=== PATIENT | female | born 2000 | race Caucasian/White ===

== ENCOUNTER 2024-10-01 08:35 | Inpatient (IN) ==
[2024-10-01] MEDS ORDERED: OXYTOCIN 30 UNITS/NSS 30 UNITS/500 ML BAG IV PRN ×2 (09:30→18:06)
[2024-10-01] MEDS ORDERED: LIDOCAINE 1% LOCAL 20 ML VIAL INFIL PRN (09:30)
[2024-10-01 10:08] LABS: Hematocrit (blood only) 40.9 % (37.0-47.0); Hemoglobin 14.1 g/dl (12.0-16.0); Mean Corpuscular Hemoglobin 29.9 pg (25.0-34.0); Mean Corpuscular Volume 86.7 fL (80.0-100.0); Platelet Count 216 K/uL (130-400); RDW Standard Deviation 39.8 fL (36.4-46.3); Red Blood Count 4.72 M/uL (4.20-5.40); White Blood Count 15.41 K/ul (4.8-10.8)
[2024-10-01] MEDS: LACTATED RINGER'S 1,000 ML IV PRN (11:30)
[2024-10-01] MEDS ORDERED: NALOXONE HCL 0.4 MG/1 ML VIAL/CARP IV PRN (11:31)
[2024-10-01] MEDS ORDERED: NALOXONE HCL 1 MG in SODIUM CHLORIDE 0.9% 1,000 ML IV PRN (11:31)
[2024-10-01] MEDS ORDERED: LIDOCAINE 2% MPF LOCAL 5 ML VIAL EPI PRN (11:31)
[2024-10-01] MEDS ORDERED: diphenhydrAMINE 50 MG/ML VIAL IV PRN (11:31)
[2024-10-01] MEDS ORDERED: ROPIVACAINE 0.5% PF 5 MG/ML 20 ML VIAL EPI PRN (11:31)
[2024-10-01] MEDS ORDERED: NALBUPHINE HCL INJ 10 MG/ML AMP IV PRN (11:31)
[2024-10-01] MEDS ORDERED: BUPIVACAINE 0.25% PF 30 ML VIAL EPI PRN (11:31)
[2024-10-01] MEDS ORDERED: SODIUM CHLORIDE 0.9% PF INJ 10 ML VIAL EPI PRN (11:31)
--- NOTE | 2024-10-01 11:31 | Anesthesiology Consultation ---
Date of Service October 01, 2024 Assessment & Plan Chart Review Chart Review: Acceptable Risk for Labor Epidural Consults Requested none History Height/Weight Height: 5 ft 6 in Weight: 87.884 kg Allergies Allergy/AdvReac Type Severity Reaction Status Date / Time No Known Allergies Allergy Unknown Verified 09/26/24 10:08 Medications Home Medications Medication Instructions Recorded Confirmed Last Taken bisacodyl 5 mg tablet,delayed 5 mg PO DAILY 09/16/24 10/01/24 09/30/24 release (Dulcolax (bisacodyl)) ferrous sulfate 27 mg iron tablet 27 mg PO DAILY 10/01/24 10/01/24 09/30/24 vits no.130-ferrous fum 1 tab PO DAILY 10/01/24 10/01/24 09/30/24 27 mg iron-folic acid 800 mcg tablet ( Vitamin) Past Medical History Medical History (Updated 04/04/24 @ 11:04 by Annita Ortiz) No significant past medical history Past Family History Family History (System 04/04/24 @ 11:04 by Annita Ortiz) Other Family history non-contributory Heart disease Past Surgical History Surgical History (Updated 04/04/24 @ 11:04 by Annita Ortiz) S/P wisdom tooth extraction Social History Smoking Status: Never smoker Do You Dip or Chew Tobacco: No Hx Alcohol Use: No Hx Substance Use: No Physical Exam Vital Signs Last Vital Signs Temp 36.8 C 10/01/24 08:53 Pulse 84 10/01/24 09:18 Resp 20 10/01/24 08:53 BP 123/89 10/01/24 09:18 Testing Laboratory Results 10/01/24 09:49
[2024-10-01] MEDS: LIDOCAINE 2%/EPINEPHRINE 1:200,000 20 ML PF EPI STA (12:01)
[2024-10-01] MEDS: fentANYL 2 MCG/ML BUPIVacaine 0.125%-NSS 100ML BAG EPI PRN (12:02)
[2024-10-01] MEDS: SODIUM CHLORIDE 0.9% PF INJ 10 ML VIAL ONE (13:03)
[2024-10-01] MEDS: BUPIVACAINE 0.25% PF 30 ML VIAL ONE (13:03)
[2024-10-01] MEDS: fentANYL 2 MCG/ML BUPIVacaine 0.125%-NSS 100ML BAG ONE (13:04)
[2024-10-01] MEDS: BUPIVACAINE 0.25% PF 30 ML VIAL EPI STA (13:04)
[2024-10-01] MEDS: LIDOCAINE 2%/EPINEPHRINE 1:200,000 20 ML PF ONE (13:04)
[2024-10-01] MEDS: SODIUM CHLORIDE 0.9% PF INJ 10 ML VIAL EPI STA (13:05)
--- NOTE | 2024-10-01 13:18 | Anesthesia Procedure Note ---
Date of Service October 01, 2024 Anesthesia Epidural Re-Dose Vital Signs Temp Pulse Resp BP Pulse Ox 36.6 C 76 18 115/74 99 10/01/24 13:00 10/01/24 13:13 10/01/24 13:00 10/01/24 13:12 10/01/24 13:13 Notes Pain Intensity: 7 Dilatation (cm): 7.0 Effacement (%): 90 Called by nursing to evaluate epidural as the patient is having increased pain. The epidural was re-dosed with the following medications (all medications via epidural route) after negative aspiration of the epidural catheter for CSF/HEME. Lidocaine 2% After Epidural Re-Dose Mental Status: alert / awake / arousable and participated in evaluation Pain: improving with treatment Airway Patency, RR, SpO2: stable & adequate BP & HR: stable & adequate
[2024-10-01] MEDS: OXYTOCIN 30 UNITS/NSS 30 UNITS/500 ML BAG IV PRN (14:51)
--- NOTE | 2024-10-01 17:50 | Delivery Summary ---
Vaginal Delivery Summary Date of Service October 01, 2024 Vaginal Delivery Summary DIAGNOSES: 1. Robison intrauterine at 39w4d gestation. 2. SROM / Labor. 3. Group B Streptococcus Neg. 4. PPH with EBL 623cc 5. Bilateral sulcal lacerations and a deep 2nd degree perineal laceration, perineal hematoma 6. LOP position of the head at delivery PROCEDURE: Spontaneous vaginal delivery and repair of complex laceration. SURGEON: Adele Kovacs MD. ADMINISTRATION SPECIALIST: None. ESTIMATED BLOOD LOSS: 623 mL. COMPLICATIONS: None. PLACENTA: Spontaneous and intact with a 3-vessel cord. DISPOSITION: Stable to labor and delivery. DESCRIPTION: The patient pushed well and brought the head to in LOP position. The infant's head was allowed to deliver with contraction force and no further active pushing, with the perineum protected during this time. There was no nuchal cord. The right shoulder was anterior. The shoulders and body delivered without any difficulty, and the infant was placed on the maternal abdomen. It was vigorous and moving all extremities, and making respiratory efforts. The cord was doubly clamped by the MD and then cut by the FOB. The placenta delivered spontaneously and was noted to be intact and with a 3VC but with a marginal insertion. The cervix, vagina and perineum were examined and were found to have significant tissue edema, a complex laceration with bilateral deep sulcal lacerations and a midline deep 2nd degree laceration, and a left labial / perineal hematoma approximately the size of a golf ball visible immediately after delivery. Repair was accomplished by bringing portable suction unit and an fast food sales assistant / retractors to the bedside, and systematically addressing each sulcus and then the midline posterior vaginal / perineal laceration. The tissue globally but particularly on the left posterior vaginal wall / labium around 5 o'clock (where the occiput was positioned at delivery) was edematous and had poor retention of suture. Once reasonable hemostasis was achieved, therefore, a anderson and vaginal packing (one laparotomy sponge) was placed. The perineal hematoma was no larger than it had been (golf ball sized) and was softer after repair. A rectal examination ruled out injury to the re ctum and anal sphincter, which were both intact. I also placed 800mcg of cytotec rectally, because although the fundus has been firm and well below the umbilicus, any atony in the next hour or two may be harder to detect as lochia flow will be impeded by the vaginal packing. The fundus was firm and lochia was minimal at the time I placed the packing and left the room. [facility] Vaginal Delivery Charge Vaginal Delivery Codes: 37576 global code for the antepartum, delivery, and post-
--- NOTE | 2024-10-01 17:59 | Communication Note ---
Date of Service: October 01, 2024 pt s/p c/b PPH and vaginal lacs requiring repair and extensive packing. contacted by Dr. Kovacs with request to leave epidural in place as analgesia w hile packing in place overnight. Agreed and plan to leave epidural catheter in place with a new infusion order of 03/12/19 to act as EPCA. will continue to monitor on L&D. Rizwan RODRIGUEZ
[2024-10-01] MEDS ORDERED: DIPHTHER/TETAN/PERTUS Vaccine (Tdap, Adol/Adult) 0.5mL IM ONE (18:06)
[2024-10-01] MEDS ORDERED: HYDROCORTISONE ACETATE 25 MG SUPP PR PRN (18:06)
[2024-10-01] MEDS: LACTATED RINGER'S 1,000 ML IV SCH (19:00)
[2024-10-01] MEDS ORDERED: Nursing to Pharmacy Communication SCH (19:30)
[2024-10-01] MEDS: DOCUSATE SODIUM 100 MG CAP PO SCH (21:43)
[2024-10-02 07:04] LABS: Hematocrit (blood only) 28.6 % (37.0-47.0); Hemoglobin 9.8 g/dl (12.0-16.0); Mean Corpuscular Hemoglobin 29.7 pg (25.0-34.0); Mean Corpuscular Volume 86.7 fL (80.0-100.0); Platelet Count 169 K/uL (130-400); RDW Standard Deviation 39.8 fL (36.4-46.3); Red Blood Count 3.30 M/uL (4.20-5.40); White Blood Count 16.06 K/ul (4.8-10.8)
--- NOTE | 2024-10-02 07:44 | Obstetrical Progress Note ---
Date of Service October 02, 2024 Assessment & Plan (1) state: Complex vaginal lacerations hemostatic after repair and overnight packing. Significant labial edema and ecchymoses remain, but no hematoma at this point; all tissue soft, no organized collections. Continue ice packs, topical comfort medications, and TOV today. Hgb noted 9.8 this AM, vitals without tachycardia. Subjective Ambulation: limited ambulation Voiding: anderson catheter in place Passing Gas:: Yes Diet Tolerance:: regular diet Lochia:: Small Feeding Type:: breast feeding Physical Exam Constitutional WD/WN, vitals as above Eyes PERRL, conjunctivae normal, anicteric sclerae Neck normal visual inspection Respiratory normal respiratory effort and able to speak in complete sentences; no respiratory distress and no labored breathing Cardiovascular Rate/Rhythm: regular rate and regular rhythm Extremities: no edema Chest (Breasts) Chest: normal inspection of chest Gastrointestinal (Abdomen) Inspection/Auscultation: abdomen normal to inspection Soft, postgravid Psychiatric A+Ox3, euthymic affect Genitourinary OB Exam Abdomen: + fundal height Fundus: + firm and + relation to umbilicus (fundus just below umbilicus); not tender Vaginal packing removed, no active bleeding seen after removal. Anderson removed, 800cc clear urine seen in bag. Results & Data Vital Signs (Past 12 Hours) Vital Signs Temp Pulse Resp BP 10/02/24 07:08 88 96/61 L 10/02/24 06:56 71 98/54 L 10/02/24 05:57 78 99/59 L 10/02/24 04:57 92 H 116/55 L 10/02/24 03:57 75 108/62 10/02/24 02:57 73 108/72 10/02/24 02:49 97.9 F 18 10/02/24 01:56 79 100/67 10/02/24 00:56 77 104/68 10/01/24 23:56 84 10/01/24 23:56 120/76 10/01/24 23:52 99.0 F 18 10/01/24 22:57 75 10/01/24 22:57 110/68 10/01/24 21:56 78 109/68 10/01/24 20:40 96 H 109/80 10/01/24 20:25 93 H 114/73 10/01/24 20:10 18 10/01/24 20:10 97 H 118/66 10/01/24 19:55 89 118/78
--- NOTE | 2024-10-02 08:43 | Anesthesia Procedure Note ---
Date of Service October 02, 2024 Anesthesia Post Epidural Note Vital Signs Vital Signs: Temp Pulse Resp BP Pulse Ox 37 C 88 20 96/61 L 89 L 10/02/24 07:00 10/02/24 07:08 10/02/24 07:00 10/02/24 07:08 10/01/24 18:29 Pain Intensity Abdomen: Pain Intensity: 5 Notes Mental Status: alert / awake / arousable and participated in evaluation Nausea / Vomiting: adequately controlled Pain: adequately controlled Airway Patency, RR, SpO2: stable & adequate BP & HR: stable & adequate Hydration State: stable & adequate Neuraxial Anesthesia: was administered and sensory block is resolving Anesthetic Complications: no major complications apparent and Pt Satisfied with anesthetic care Epidural: Removed without complications and With tip intact Notes: epidural left in place after d/t PPH. labs WNL/VSS prior to removal of catheter.
[2024-10-02] MEDS: BENZOCAINE 20% SPRY 85 APPLN/85 GM CAN EXT PRN (09:21)
[2024-10-02] MEDS: PRENATAL VITAMIN 1 TAB PO SCH (09:21)
[2024-10-02] MEDS: IBUPROFEN 600 MG TAB PO PRN (11:50)
[2024-10-02] MEDS: ACETAMINOPHEN 325 MG TAB PO PRN (11:51)
[2024-10-02 21:00] VITALS: TEMP 97.7
[2024-10-02 22:54] VITALS: BP 97/60; PULSE 82; RESP 16; O2SAT 97
--- NOTE | 2024-10-03 05:31 | Obstetrical Progress Note ---
Date of Service October 03, 2024 Assessment & Plan (1) state: Plan: 24 y/o day 2 s/p complicated by PPH secondary to bilateral sulcal lacerations, deep 2nd degree lacerations, and perineal hematoma. Feels well today. Vital signs stable Continue post- care consult with nursing staff. Encourage ambulation and Pain controlled with ibuprofen Hgb stable Discharge home today, follow up with Dr. Kovacs in 6 weeks. Admission and Anticipated Discharge Date Admission Date: October 01, 2024 Anticipated date of discharge: 10/03/24 Supervising Physician Co-Signing Physician Notes Resident Physician Supervision Note: I interviewed and examined the patient. Discussed with Dr. Gómez and agree with findings and plan as documented in the note. Any exceptions or clarifications are listed here: Ready for d/c home. Voiding without difficulty or discomfort, edema and vaginal lacerations should continue to improve. Documented By: Adele Kovacs MD, FACOG Subjective 24 y/o G1PO day 2 s/p complicated by PPH secondary to bilateral sulcal laceration, deep 2nd degree perineal laceration, and a perineal hematoma. Ambulation: ambulating normally Voiding: no voiding problems Passing Gas:: Yes Diet Tolerance:: regular diet Lochia:: Small Feeding Type:: breast feeding Current Pain Level: 2/10 Resting comfortably this AM in NAD. Denies ROQUE, CP, SOB, N/V/D, LE pain/swelling. Review of Systems Review of Systems: All systems reviewed & are unremarkable except as noted in HPI & below Physical Exam Physical Exam: General: patient resting comfortably, NAD, non-toxic in appearance, AA&O x 4, answers questions appropriately. Skin: warm, dry, intact HEENT: NC/AT, anicteric sclera, conjunctiva without injection, moist mucus membranes. Heart: +S1/S2, regular, no m/r/g Lungs: equal air entry bilaterally, no rales/rhonchi/wheezes Abd: +BS, soft, NT/ND, uterine fundus firm at umbilicus Ext: warm, no clubbing/cyanosis or edema, Anish's neg. Neuro: nonfocal, patient AA&O x 4, speech intact, no facial droop, moving all extremities on command. Constitutional: WD/WN, vitals as above Results & Data Vital Signs (Past 12 Hours) Vital Signs Temp Pulse Resp BP Pulse Ox O2 Del Method 10/02/24 22:53 36.5 C 82 16 97/60 L 97 Room Air 10/02/24 19:40 Room Air 10/02/24 19:40 36.5 C 90 18 110/75 96 Room Air
[2024-10-03 06:10] LABS: Hematocrit (blood only) 27.5 % (37.0-47.0); Hemoglobin 9.2 g/dl (12.0-16.0)
== END 2024-10-03 11:45 | disposition home or self-care (01) | DRG 768 ==
LOC: OPB 08:35 → 4S1 08:39 → 4E2 10-02 11:33